=== PATIENT | female | born 1945 | race Caucasian/White ===

== ENCOUNTER → 2016-11-08 | Outpatient (CLI) | payer MEDICARE ==
[~2016-11-08] MED LIST: BENA40TA2 PO; BUME2TAB PO; DILT30TA33 PO; FENT1PAT77 TP; GABA300C10 PO; OMEP-110 PO; OXYC10TA6 PO; PARO12.517 PO; POTA10TA11 PO; SIMV10TA PO
== END | disposition home or self-care (01) ==
LOC: ROC 13:47
PROVIDERS: ATTEND Radiology Radiation Oncology
DX: C11.9 Malignant neoplasm of nasopharynx, unspecified (principal); Z92.3 Personal history of irradiation; Z92.21 Personal history of antineoplastic chemotherapy
CPT/HCPCS: G0463

== ENCOUNTER → 2017-05-09 | Outpatient (CLI) | payer MEDICARE | END | disposition home or self-care (01) | LOC: ROC 10:26 | PROVIDERS: ATTEND Radiology Radiation Oncology | DX: C11.9 Malignant neoplasm of nasopharynx, unspecified (principal) | CPT/HCPCS: G0463 ==

== ENCOUNTER → 2018-06-12 | Outpatient (CLI) | payer MEDICARE ==
[~2018-06-12] MED LIST changes: -BENA40TA2 PO; +BENA40TA3 PO
== END | disposition home or self-care (01) ==
LOC: ROC 08:00
PROVIDERS: ATTEND Radiology Radiation Oncology
DX: Z08 Encounter for follow-up examination after completed treatment for malignant neoplasm (principal); C11.2 Malignant neoplasm of lateral wall of nasopharynx
CPT/HCPCS: G0463

== ENCOUNTER 2019-01-14 07:45 | Outpatient (CLI) | payer MEDICARE | END 2019-01-14 23:59 | disposition home or self-care (01) | LOC: ROC 07:45 | PROVIDERS: ATTEND Radiology Radiation Oncology | DX: Z08 Encounter for follow-up examination after completed treatment for malignant neoplasm (principal); R22.1 Localized swelling, mass and lump, neck; Z85.819 Personal history of malignant neoplasm of unspecified site of lip, oral cavity, and pharynx | CPT/HCPCS: G0463 ==

== ENCOUNTER 2019-01-19 11:58 | Outpatient (CLI) | payer MEDICARE ==
[~2019-01-19 11:58] MED LIST changes: -BUME2TAB PO; +BUME2TAB3 PO
[2019-01-19] MEDS ORDERED: LIDOCAINE-MPF 1%, 5ML ONE (13:13)
[2019-01-19] MEDS ORDERED: OMNIPAQUE 350 MG/ML, 150 ML BOTTLE ONE (14:42)
== END 2019-01-19 23:59 | disposition home or self-care (01) ==
LOC: RAD 11:58
PROVIDERS: ATTEND Radiology Radiation Oncology
DX: C11.2 Malignant neoplasm of lateral wall of nasopharynx (principal)
CPT/HCPCS: 70491; 71260; Q9967

== ENCOUNTER 2019-04-30 08:41 | Outpatient (CLI) | payer MEDICARE | END 2019-04-30 23:59 | disposition home or self-care (01) | LOC: ROC 08:41 | PROVIDERS: ATTEND Radiology Radiation Oncology | DX: Z08 Encounter for follow-up examination after completed treatment for malignant neoplasm (principal); Z85.828 Personal history of other malignant neoplasm of skin | CPT/HCPCS: G0463 ==